=== PATIENT | female | born 1990 | race African-American/Black ===

== ENCOUNTER 2016-08-13 15:34 | Emergency (ER) | payer OTHER ==
[2016-08-13 15:40] VITALS: BP 126/85; PULSE 90; TEMP 97.9; BMI 21.7
[2016-08-13] MEDS ORDERED: MAG HYDROX/AL HYDROX/SIMETH 30 ML UNIT-DOSE CUP PO ONE (16:14)
[2016-08-13] MEDS ORDERED: FAMOTIDINE 20 MG/50 ML IVPB 50 ML IVPB ONE (16:14)
[2016-08-13] MEDS ORDERED: MAG HYDROX/AL HYDROX/SIMETH 30 ML UNIT-DOSE CUP ONE (16:27)
[2016-08-13 16:35] LABS: BASOPHIL 0.5 % (0-2.0); EOSINOPHIL 1.1 % (0-4.5); MCH 31.8 pg (25.7-33.7); MCHC 33.8 g/dl (32.0-36.0); MEAN CELL VOLUME 94.1 fl (80-96); MEAN PLT VOLUME 8.4 fl (7.5-11.1); NEUTROPHILS 66.2 % (42.8-82.8); PLATELET COUNT 251 K/MM3 (134-434); RDW 13.2 % (11.6-15.6); WHITE BLOOD COUNT 7.5 K/mm3 (4.0-10.0)
--- NOTE | 2016-08-13 17:24 | PDOC ---
History of Present Illness - General Chief Complaint: Pain, Acute Stated Complaint: ABD PAIN Time Seen by Provider: 08/13/16 15:53 History Source: Patient Exam Limitations: No Limitations - History of Present Illness Travel History: No Initial Comments: 08/13/16 17:21 25 yr female with abd pain for 4 days was seen at [facility] ER 2 days ago for same told she was constipated. Pt states the pain continues is getting worse. Pt denies fever or chills, vomited yesterday after taking Mag citrate. no fever no cough no sick contacts, no foreign travel. no abd surgeries or medical history. LMP 2 weeks ago no vaginal discharge or urianry symptoms 08/13/16 17:23 Timing/Duration: reports: intermittent Quality: reports: aching Abdominal Pain Onset Location: reports: [facility] Pain Radiation: reports: periumbilical Activities at Onset: reports: none Past History - Past Medical History Allergies/Adverse Reactions: Allergies Allergy/AdvReac Type Severity Reaction Status Date / Time No Known Allergies Allergy Verified 08/13/16 15:40 Home Medications: Ambulatory Orders Ranitidine [Zantac -] 150 mg PO BID #28 tablet 08/13/16 - Immunization History Immunization Up to Date: Yes - Psycho/Social/Smoking Cessation Hx Suicidal Ideation: No Smoking History: Never smoked Information on smoking cessation initiated: No Abd/GI Specific PMHX - Complaint Specific PMHX Colitis: No Diverticulitis: No Gall Bladder Disease: No GERD: No Hepatitis: No Irritable Bowel Synd (IBS): No Pancreatitis: No GI Ulcer Disease: No Review of Systems - Review of Systems Able to Perform ROS?: Yes Is the patient limited Indonesian proficient: No Constitutional: No: Symptoms Reported HEENTM: No: Symptoms Reported Respiratory: No: Symptoms reported Cardiac (ROS): No: Symptoms Reported ABD/GI: Yes: Symptoms Reported, See HPI *Physical Exam - Vital Signs Last Vital Signs Temp Pulse Resp BP Pulse Ox 97.9 F 90 20 126/85 99 08/13/16 15:36 08/13/16 15:36 08/13/16 15:36 08/13/16 15:36 08/13/16 15:36 - Physical Exam General Appearance: Yes: Nourished, Appropriately Dressed HEENT: positive: EOMI, JOSUÉ, Normal ENT Inspection, TMs Normal, Pharynx Normal Neck: positive: Supple. negative: Tender Respiratory/Chest: positive: Lungs Clear, Normal Breath Sounds Cardiovascular: positive: Regular Rhythm, Regular Rate Gastrointestinal/Abdominal: positive: Normal Bowel Sounds, Tender ( left upper quadrant , non tender right lower quadrant , no guarding or rebound), Soft Musculoskeletal: positive: Normal Inspection Extremity: positive: Normal Capillary Refill, Normal Inspection, Normal Range of Motion Integumentary: positive: Normal Color, Dry, Warm Neurologic: positive: Fully Oriented, Alert, Normal Mood/Affect, Normal Response , Motor Strength 09/24 ED Treatment Course - LABORATORY CBC & Chemistry Diagram: 08/13/16 16:15 08/13/16 17:15 - ADDITIONAL ORDERS Additional order review: 08/13/16 16:15 RBC 3.93 MCV 94.1 MCHC 33.8 RDW 13.2 MPV 8.4 Neutrophils % 66.2 Lymphocytes % 21.7 Monocytes % 10.5 H Eosinophils % 1.1 Basophils % 0.5 - Medications Given in the ED: ED Medications Discontinued Medications Generic Name Dose Route Start Last Admin Trade Name Foxq PRN Reason Stop Dose Admin Al Hydroxide/Mg Hydroxide 30 ml 08/13/16 16:14 08/13/16 16:33 Mylanta Oral Suspension - PO 08/13/16 16:15 30 ml ONCE ONE Administration Famotidine/Sodium Chloride 50 mls @ 100 mls/hr 08/13/16 16:14 08/13/16 16:33 Pepcid 20 Mg Premixed Ivpb - IVPB 08/13/16 16:43 100 mls/hr ONCE ONE Administration Medical Decision Making - Medical Decision Making 08/13/16 17:24 cc: abd pain, no right lower quadrant tenderness lower abd to left upper abd vitals stable, non toxic will check labs, urine 08/13/16 18:50 08/13/16 18:51 US done is within normal limits labs WNL pt feels better after meds states she has no pain urine pending 08/13/16 19:32 *DC/Admit/Observation/Transfer Diagnosis at time of Disposition: Abdominal pain Qualifiers: Abdominal location: generalized Qualified Code(s): R10.84 - Generalized abdominal pain - Discharge Dispostion Disposition: HOME Condition at time of disposition: Improved - Prescriptions Prescriptions: Ranitidine [Zantac -] 150 mg PO BID #28 tablet - Referrals Referrals: Grady George [Primary Care Provider] - Chinmay Carbajal MD [Staff Physician] - - Patient Instructions Additional Instructions: follow with the sub arc operator for follow up bland diet for the next 24hrs drink pleanty of water take the prescribed Zantac 1-2 times a day for 2 weeks return to ER for any worsening symptoms
[2016-08-13 18:07] LABS: ALBUMIN 4.2 g/dl (3.4-5.0); AMYLASE 104 U/L (25-115); ANION GAP 12 (8-16); BILIRUBIN,TOTAL 0.7 mg/dL (0.2-1.0); CALCIUM 9.1 mg/dL (8.5-10.1); CO2 28 mmol/L (21-32); CREATININE 0.7 mg/dL (0.55-1.02); GLUCOSE,RANDOM 85 mg/dL (74-106); SGOT/AST 19 U/L (15-37); SGPT/ALT 11 U/L (12-78); TOT PROT 8.6 g/dl (6.4-8.2)
[2016-08-13 18:08] LABS: ALK PHOS 80 U/L (45-117)
[2016-08-13 19:19] LABS: URINE APPEARANCE CLOUDY; URINE BILIRUBIN NEGATIVE (NEGATIVE); URINE BLOOD NEGATIVE (NEGATIVE); URINE COLOR YELLOW; URINE GLUCOSE (UA) NEGATIVE (NEGATIVE); URINE KETONE 2+ (NEGATIVE); URINE NITRITE NEGATIVE (NEGATIVE); URINE UROBILINOGEN NEGATIVE E.U./dl (0.2-1.0)
[2016-08-13 19:32] LABS: URINE LEUK ESTERASE TRACE (NEGATIVE); URINE PROTEIN 1+ (NEGATIVE)
[2016-08-13 20:17] LABS: CALCIUM OXALATE CRYSTALS RARE /hpf (NONE SEEN); URINE BACTERIA MANY /hpf (NONE SEEN); URINE MUCUS FEW; URINE RBC 5 /hpf (0-3); URINE WBC 34 /hpf (3-5)
== END 2016-08-13 20:35 | disposition home or self-care (01) ==
LOC: JERFT 15:34
PROC: 3E033GC Introduction of Other Therapeutic Substance into Peripheral Vein, Percutaneous Approach (ICD-10-PCS; principal; 2016-08-13)
DX: R10.84 Generalized abdominal pain (principal)
CPT/HCPCS: 36415; 76705-TC; 80053; 81003; 81015; 82150; 83690; 84703; 85025; 99281-25

== ENCOUNTER 2018-05-25 13:43 | Emergency (ER) | payer OTHER ==
[2018-05-25 14:04] VITALS: BP 113/64; PULSE 80; TEMP 98.7; BMI 20.9
--- NOTE | 2018-05-25 14:04 | PDOC ---
Rapid Medical Evaluation Time Seen by Provider: 05/25/18 14:02 Medical Evaluation: Allergies Allergy/AdvReac Type Severity Reaction Status Date / Time No Known Allergies Allergy Verified 05/25/18 13:58 05/25/18 14:02 I have performed a brief in-person evaluation of this patient. The patient presents with a chief complaint of: abd pain for 5 days right sided pain . no PMHX. lmp 05/08/18 Pertinent physical exam findings:TTP right middle mary upper quadrant I have ordered the following: urine , UA The patient will proceed to the ED for further evaluation. Discharge Disposition - Referrals Referrals: Tereza Sandhu MD [Primary Care Provider] - - Patient Instructions - Post Discharge Activity
[2018-05-25] MEDS ORDERED: ACETAMINOPHEN 500 MG TABLET (FP) PO ONE (16:08)
--- NOTE | 2018-05-25 16:08 | PDOC ---
History of Present Illness - General Chief Complaint: Pain Stated Complaint: RIGHT SIDE PAIN Time Seen by Provider: 05/25/18 14:02 History Source: Patient Exam Limitations: No Limitations - History of Present Illness Travel History: No Initial Comments: 05/25/18 17:24 HISTORY OF PRESENT ILLNESS: 27-year-old woman who presents emergency department for evaluation of intermittent right upper quadrant pain for the past 5 days. Patient states the pain comes on suddenly lasting less than 2 minutes before spontaneously resolving. Patient states she woke up today and the pain has not resolved which is why she is seeking evaluation. Patient states she is able drink without difficulty and has not felt nauseous or vomited. She denies any aggravating or alleviating factors. No recent travel or sick contacts. PAST MEDICAL HISTORY: Denies past medical history SURGICAL HISTORY: Denies ALLERGIES: No known drug allergies REVIEW OF SYSTEMS General/Constitutional: Denies fever or chills. Denies weakness, weight change. HEENT: Denies change in vision. Denies ear pain or discharge. Denies sore throat. Cardiovascular: Denies chest pain or shortness of breath. Respiratory: Denies cough, wheezing, or hemoptysis. Gastrointestinal: RUQ pain. Denies nausea, vomiting, diarrhea or constipation. Denies rectal bleeding. Genitourinary: Denies dysuria, frequency, or change in urination. Musculoskeletal: Denies joint or muscle swelling or pain. Denies neck or back pain. Skin and breasts: Denies rash or easy bruising. Neurologic: Denies headache, vertigo, loss of consciousness, or loss of sensation. Psychiatric: Denies depression or anxiety. Endocrine: Denies increased thirst. Denies abnormal weight change. Hematologic/Lymphatic: Denies anemia, easy bleeding, or history of blood clots. Allergic/Immunologic: Denies hives or skin allergy. Denies latex allergy. PHYSICAL EXAM General Appearance: Well-appearing, appropriately dressed. No apparent distress , no intoxication. HEENT: EOMI, PERRLA, normal ENT inspection, normal voice, TMs normal, pharynx normal. No conjunctival pallor. No photophobia, scleral icterus. Neck: Supple. Trachea midline. No tenderness, rigidity, carotid bruit, stridor , lymphadenopathy, or thyromegaly. Respiratory/Chest: Lungs CTAB. No shortness of breath, chest tenderness, respiratory distress, accessory muscle use. No crackles, rales, rhonchi, stridor , wheezing, dullness Cardiovascular: RRR. S1, S2. No JVD, murmur, bradycardia, tachycardia. Gastrointestinal/Abdominal: Normal bowel sounds. Abdomen soft, non-distended. RUQ tenderness. (-)Snyder's. No rebound tenderness. No organomegaly, pulsatile mass, guarding, hernia, hepatomegaly, splenomegaly. Musculoskeletal/Extremities: Normal inspection. FROM of all extremities, normal capillary refill. Pelvis Stable. No CVA tenderness. No tenderness to extremities, pedal edema, swelling, erythema or deformity. Past History - Past Medical History Allergies/Adverse Reactions: Allergies Allergy/AdvReac Type Severity Reaction Status Date / Time No Known Allergies Allergy Verified 05/25/18 13:58 Home Medications: Ambulatory Orders Ranitidine [Zantac -] 150 mg PO BID #28 tablet 08/13/16 COPD: No - Immunization History Immunization Up to Date: Yes - Suicide/Smoking/Psychosocial Hx Smoking History: Never smoked Hx Alcohol Use: No Drug/Substance Use Hx: No Abd/GI Specific PMHX - Complaint Specific PMHX Colitis: No Diverticulitis: No Gall Bladder Disease: No GERD: No Hepatitis: No Irritable Bowel Synd (IBS): No Pancreatitis: No GI Ulcer Disease: No *Physical Exam - Vital Signs Last Vital Signs Temp Pulse Resp BP Pulse Ox 98.7 F 80 18 113/64 100 05/25/18 13:59 05/25/18 13:59 05/25/18 13:59 05/25/18 13:59 05/25/18 13:59 Moderate Sedation - Procedure Monitoring Vital Signs: Procedure Monitoring Vital Signs Temperature 98.7 F 05/25/18 13:59 Pulse Rate 80 05/25/18 13:59 Respiratory Rate 18 05/25/18 13:59 Blood Pressure 113/64 05/25/18 13:59 O2 Sat by Pulse Oximetry (%) 100 05/25/18 13:59 ED Treatment Course - LABORATORY CBC & Chemistry Diagram: 05/25/18 16:07 05/25/18 16:07 Medical Decision Making - Medical Decision Making 05/25/18 17:24 A/P: 27-year-old woman with intermittent abdominal pain for the past 5 days Normoactive bowel sounds Tenderness present to the right upper quadrant Negative Snyder sign Remainder of abdomen is benign DDx: Pancreatitis, cholecystitis, gallstones, GERD, gastritis Laboratory testing is unremarkable. Urinalysis trace leukoesterase, 5 WBCs and many bacteria. Ultrasound as read by Dr. Cole: No definite sonographic abnormality is seen. 05/25/18 17:37 Patient's pain is completely resolved after receiving Tylenol. I'll discharge the patient home to follow-up with her primary doctor. Patient is agreeable with this plan as verbalized understanding of discharge instructions. *DC/Admit/Observation/Transfer Diagnosis at time of Disposition: RUQ pain - Discharge Dispostion Disposition: HOME Condition at time of disposition: Stable Decision to Admit order: No - Referrals Referrals: Tereza Sandhu MD [Primary Care Provider] - - Patient Instructions Additional Instructions: Take Tylenol as needed for pain. Make appointment with her primary doctor for continued evaluation Return to emergency department for any concerns. - Post Discharge Activity
[2018-05-25] MEDS ORDERED: ACETAMINOPHEN 325 MG TABLET (FP) ONE (16:17)
[2018-05-25 16:43] LABS: BASO % 0.6 % (0-2.0); EOS % 0.8 % (0-4.5); HEMATOCRIT 37.2 % (32.4-45.2); HEMOGLOBIN 13.1 GM/dL (10.7-15.3); LYMPH % 22.3 % (8-40); MCHC 35.1 g/dl (32.0-36.0); MEAN CELL VOLUME 94.1 fl (80-96); MEAN PLT VOLUME 8.1 fl (7.5-11.1); MONO % 6.8 % (3.8-10.2); NEUT % 69.5 % (42.8-82.8); PLATELET COUNT 265 K/MM3 (134-434); RBC 3.95 M/mm3 (3.60-5.2); RDW 12.8 % (11.6-15.6); WHITE BLOOD COUNT 6.4 K/mm3 (4.0-10.0)
[2018-05-25 16:47] LABS: HCG,QUALITATIVE URINE Negative; URINE APPEARANCE SLCLOUDY; URINE BILIRUBIN NEGATIVE (<2.0 mg/dL); URINE COLOR YELLOW; URINE GLUCOSE (UA) NEGATIVE (NEGATIVE); URINE KETONE NEGATIVE (NEGATIVE); URINE LEUK ESTERASE TRACE (NEGATIVE); URINE NITRITE NEGATIVE (NEGATIVE); URINE PROTEIN NEGATIVE (NEGATIVE); URINE UROBILINOGEN NEGATIVE mg/dL (0.2-1.0)
[2018-05-25 16:53] LABS: EPI CELLS FEW /HPF (FEW); URINE BACTERIA MANY /hpf (NONE SEEN); URINE MUCUS MANY
[2018-05-25 17:09] LABS: ALBUMIN 3.9 g/dl (3.4-5.0); ALK PHOS 68 U/L (45-117); ANION GAP 7 MMOL/L (8-16); BILIRUBIN,TOTAL 0.9 mg/dL (0.2-1); BLOOD UREA NITROGEN 9 mg/dL (7-18); CALCIUM 8.9 mg/dL (8.5-10.1); CHLORIDE 106 mmol/L (98-107); CO2 25 mmol/L (21-32); CREATININE 0.7 mg/dL (0.55-1.3); GLUCOSE,RANDOM 88 mg/dL (74-106); LIPASE 254 U/L (73-393); SGOT/AST 18 U/L (15-37); SGPT/ALT 16 U/L (13-61); SODIUM 138 mmol/L (136-145); TOT PROT 8.1 g/dl (6.4-8.2)
== END 2018-05-25 17:47 | disposition home or self-care (01) ==
LOC: JERFT 13:43
DX: R10.11 Right upper quadrant pain (principal)
CPT/HCPCS: 36415; 76705-TC; 80053; 81003; 81015; 83690; 84703; 85025; 99281-25

== ENCOUNTER 2021-08-09 15:59 | Emergency (ER) | payer BC ==
[2021-08-09 16:03] VITALS: BP 97/61; PULSE 90; TEMP 97.8; BMI 20.9
[2021-08-09 17:03] LABS: URINE APPEARANCE CLEAR; URINE BILIRUBIN NEGATIVE (NEGATIVE); URINE COLOR YELLOW; URINE GLUCOSE (UA) NEGATIVE (NEGATIVE); URINE KETONE TRACE (NEGATIVE); URINE LEUK ESTERASE NEGATIVE (NEGATIVE); URINE NITRITE NEGATIVE (NEGATIVE); URINE PROTEIN NEGATIVE (NEGATIVE)
[2021-08-09 17:06] LABS: HCG,QUALITATIVE URINE Negative
== END 2021-08-09 17:21 | disposition home or self-care (01) ==
LOC: JERFT 15:59 → JER 15:59 → JERFT 17:21
DX: R19.7 Diarrhea, unspecified (principal)
CPT/HCPCS: 81003; 84703; 87086; 99283-25

== ENCOUNTER 2022-12-21 14:00 | Emergency (ER) | payer BC ==
[2022-12-21 14:05] VITALS: BP 114/78; PULSE 68; RESP 19; TEMP 97.9; BMI 23.7
[2022-12-21] MEDS ORDERED: ACETAMINOPHEN 1000 MG/100 ML BAG IVPB ONE (14:57)
[2022-12-21] MEDS ORDERED: FAMOTIDINE 20 MG/50 ML IVPB 20 MG/50 ML MG IVPB ONE ×2 (14:57→15:19)
[2022-12-21] MEDS ORDERED: ONDANSETRON 4 MG/2 ML VIAL IVPUSH ONE (14:57)
[2022-12-21] MEDS ORDERED: ONDANSETRON 4 MG/2 ML VIAL ONE (15:19)
[2022-12-21 15:49] LABS: BASO % 0.7 % (0-2.0); EOS % 0.4 % (0-4.5); HEMATOCRIT 39.2 % (32.4-45.2); HEMOGLOBIN 13.6 GM/dL (10.7-15.3); LYMPH % 14.8 % (8-40); MCHC 34.6 g/dl (32.0-36.0); MEAN CELL VOLUME 92.4 fl (80-96); MEAN PLT VOLUME 7.7 fl (7.5-11.1); MONO % 4.9 % (3.8-10.2); NEUT % 79.2 % (42.8-82.8); PLATELET COUNT 290 10^3/uL (134-434); RBC 4.24 M/mm3 (3.60-5.2); RDW 13.4 % (11.6-15.6); WHITE BLOOD COUNT 6.3 K/mm3 (4.0-10.0)
[2022-12-21 15:56] LABS: CHLORIDE 106 mmol/L (98-107); POTASSIUM 4.3 mmol/L (3.5-5.1); SODIUM 141 mmol/L (136-145)
[2022-12-21 15:58] LABS: CALCIUM 9.3 mg/dL (8.5-10.1)
[2022-12-21 15:59] LABS: ALBUMIN 4.1 g/dl (3.4-5.0); ANION GAP 8 MMOL/L (8-16); BLOOD UREA NITROGEN 5.6 mg/dL (7-18); CO2 27 mmol/L (21-32); GLUCOSE,RANDOM 93 mg/dL (74-106); LIPASE 125 U/L (73-393); MAGNESIUM 1.9 mg/dL (1.8-2.4)
[2022-12-21 16:01] LABS: CREATININE 0.7 mg/dL (0.55-1.3); SGPT/ALT 19 U/L (13-61)
[2022-12-21 16:02] LABS: SGOT/AST 16 U/L (15-37)
[2022-12-21 16:03] LABS: TOT PROT 8.5 g/dl (6.4-8.2)
[2022-12-21 16:04] LABS: ALK PHOS 93 U/L (45-117)
== END 2022-12-21 17:38 | disposition home or self-care (01) ==
LOC: JER 14:00
PROC: 3E033GC Introduction of Other Therapeutic Substance into Peripheral Vein, Percutaneous Approach (ICD-10-PCS; principal; 2022-12-21)
PROC: 3E033NZ Introduction of Analgesics, Hypnotics, Sedatives into Peripheral Vein, Percutaneous Approach (ICD-10-PCS; 2022-12-21)
PROC: 3E033GC Introduction of Other Therapeutic Substance into Peripheral Vein, Percutaneous Approach (ICD-10-PCS; 2022-12-21)
DX: R10.84 Generalized abdominal pain (principal)
CPT/HCPCS: 74177-TC; 80053; 83690; 83735; 84703; 85025; 86140; 99285-25